=== PATIENT | female | born 1975 | race Caucasian/White ===

== ENCOUNTER 2017-06-12 10:46 | Emergency (ER) | payer OTHER ==
--- NOTE | 2017-06-12 11:02 | EDM.PDOC ---
ED HPI GENERAL MEDICAL PROBLEM - General Chief Complaint: Laceration Stated Complaint: CUT FINGER IN LT HAND Time Seen by Provider: 06/12/17 11:02 Source of Information: Reports: Patient History Limitations: Reports: No Limitations - History of Present Illness INITIAL COMMENTS - FREE TEXT/NARRATIVE: HISTORY AND PHYSICAL: History of present illness: Shouldn't is a 41-year-old female who presents to the emergency room with complaints of laceration to the left second digit. She was at work, works at [employer], and cut her distal finger with a bread knife. Patient had applied at her own dressing prior to arrival. Pressure was needed to control bleeding. Tetanus is up-to-date. Review of systems: As per history of present illness and below otherwise all systems reviewed and negative. Past medical history: As per history of present illness and as reviewed below otherwise noncontributory. Surgical history: As per history of present illness and as reviewed below otherwise noncontributory. Social history: No reported history of drug or alcohol abuse. Family history: As per history of present illness and as reviewed below otherwise noncontributory. Physical exam: Gen.: Well-developed and well-nourished 81-year-old female. Alert and oriented. Appears nontoxic and in no acute distress. HEENT: Atraumatic, normocephalic, pupils reactive, negative for conjunctival pallor or scleral icterus, mucous membranes moist, throat clear, neck supple, nontender, trachea midline. Lungs: Clear to auscultation, breath sounds equal bilaterally, chest nontender. Heart: S1S2, regular, negative for clicks, rubs, or JVD. Abdomen: Soft, nondistended, nontender. Negative for masses or hepatosplenomegaly. Negative for costovertebral tenderness. Pelvis: Stable nontender. Genitourinary: Deferred. Rectal: Deferred. Extremities: Moves all extremities per self with full range of motion without difficulty or deficits. Able to press against resistance and resist against pressure on the affected finger. No tendon involvement noted. Lotus refill less than 3 seconds. Neurovascular unremarkable. Skin: 2.5 cm laceration to the distal left second digit. No tendon involvement noted. Neuro: Awake, alert, oriented. Cranial nerves II through XII unremarkable. Cerebellum unremarkable. Motor and sensory unremarkable throughout. Exam nonfocal. Diagnostics: [] Therapeutics: 1% lidocaine was used for a digital block. 40 small needle to perform sutures. # 7 interrupted stitches were placed. Bacitracin bulky dressing applied. Impression: Finger laceration Plan: Please keep your lacerated finger clean and dry. Keep the dressing we placed on you for 24-48 hours. Monitor for signs of infection. Tylenol and Ibuprofen as needed for pain. Stitches out in 7-10 days Follow up with your PCP as needed. Return to the ED as needed and as directed. Definitive disposition and diagnosis as appropriate pending reevaluation and review of above. Duration: Minutes: Location: Reports: Upper Extremity, Left Left 2-Index finger Pain Score (Numeric/FACES): 4 - Related Data Allergies Allergy/AdvReac Type Severity Reaction Status Date / Time No Known Allergies Allergy Verified 06/12/17 11:33 Home Meds: Home Meds Aspirin [Ecotrin] 325 mg PO DAILY 06/12/17 [History] ED ROS GENERAL - Review of Systems Review Of Systems: ROS reveals no pertinent complaints other than HPI. ED EXAM, SKIN/RASH Exam: See Below (See dictation) ED SKIN PROCEDURES - Laceration/Wound Repair Left 2nd distal finger Lac/Wound length In cm: 2.5 Appearance: Subcutaneous Distal NVT: Neuro & Vascular Intact, No Tendon Injury Local Anesthesia - Lidocaine (Xylocaine): 1% Plain Local Anesthetic Volume: 4cc Skin Prep: Chlorhexidine (Hibiciens), Providone-Iodine (Betadine), Saline, Sterile Drape Exploration/Debridement/Repair: Wound Explored, No Foreign Material Found Closed with: Sutures Suture Size: 4-0 # of Sutures: 7 Suture Type: Nylon Course - Vital Signs Last Recorded V/S: Last Vital Signs Temp 98.7 F 06/12/17 11:15 Pulse 91 06/12/17 11:15 Resp 18 06/12/17 11:15 BP 159/92 H 06/12/17 11:15 Pulse Ox 96 06/12/17 11:15 - Orders/Labs/Meds Meds: Medications Discontinued Medications Generic Name Dose Route Start Last Admin Trade Name Freq PRN Reason Stop Dose Admin Bacitracin 1 dose 06/12/17 11:04 06/12/17 11:34 Bacitracin Oint 1 Gm TOP 06/12/17 11:05 1 dose ONETIME ONE Administration Lidocaine HCl 20 ml 06/12/17 11:04 12/21/17 11:04 Xylocaine 1% INJECT 06/12/17 11:05 10 ml ONETIME ONE Administration Departure - Departure Time of Disposition: 11:39 Disposition: Home, Self-Care 01 Clinical Impression: Laceration - Discharge Information Instructions: Laceration Care, Adult, [id number] Referrals: PCP,None [Primary Care Provider] - Forms: ED Department Discharge Additional Instructions: My general discharge The following information is given to patients seen in the emergency department who are being discharged to home. This information is to outline your options for follow-up care. We provide all patients seen in our emergency department with a follow-up referral. The need for follow-up, as well as the timing and circumstances, are variable depending upon the specifics of your emergency department visit. If you don't have a primary care physician on staff, we will provide you with a referral. We always advise you to contact your personal physician following an emergency department visit to inform them of the circumstance of the visit and for follow-up with them and/or the need for any referrals to a consulting specialist. The emergency department will also refer you to a specialist when appropriate. This referral assures that you have the opportunity for follow-up care with a specialist. All of these measure are taken in an effort to provide you with optimal care, which includes your follow-up. Under all circumstances we always encourage you to contact your private physician who remains a resource for coordinating your care. When calling for follow-up care, please make the office aware that this follow-up is from your recent emergency room visit. If for any reason you are refused follow-up, please contact the [facility] Emergency Department at and asked to speak to the emergency department charge nurse. [facility] [address] [place] [id number] Please keep your lacerated finger clean and dry. Keep the dressing we placed on you for 24-48 hours. Monitor for signs of infection. Tylenol and Ibuprofen as needed for pain. Stitches out in 7-10 days Follow up with your PCP as needed. Return to the ED as needed and as directed.
[2017-06-12] MEDS ORDERED: Lidocaine 1% 20 ML MDV INJECT ONE (11:04)
[2017-06-12] MEDS ORDERED: Bacitracin Oint 1 GM U/D Packet TOP ONE (11:04)
== END 2017-06-12 11:56 | disposition home or self-care (01) ==
LOC: MW.ED 10:46
DX: S61.211A Laceration without foreign body of left index finger without damage to nail, initial encounter (principal); Z79.82 Long term (current) use of aspirin; W26.0XXA Contact with knife, initial encounter
CPT/HCPCS: 12001; 99282; 99283

== ENCOUNTER 2017-07-22 18:58 | Emergency (ER) | payer BC, OTHER ==
--- NOTE | 2017-07-22 19:23 | EDM.PDOC ---
ED HPI GENERAL MEDICAL PROBLEM - General Chief Complaint: Respiratory Problem Stated Complaint: TROUBLE BREATHING Time Seen by Provider: 07/22/17 19:22 Source of Information: Reports: Patient History Limitations: Reports: No Limitations - History of Present Illness INITIAL COMMENTS - FREE TEXT/NARRATIVE: HISTORY AND PHYSICAL: []41-year-old female presenting with right-sided chest pain and cough History of Present Illness: []Difficulty breathing has been for the last 3 days Denies asthma Review of Systems: As per history of present illness and below otherwise all systems reviewed and negative. Past medical history: As per history of present illness and as reviewed below otherwise noncontributory. Surgical history: As per history of present illness and as reviewed below otherwise noncontributory. Social history: No reported history of drug or alcohol abuse. Family history: As per history of present illness and as reviewed below otherwise noncontributory. Physical exam: Alert and oriented female answering questions in 3-4 words at a time. Shortness of breath with speaking. HEENT: Atraumatic, normocehpalic, pupils reactive, negative for conjunctival pallor or scleral icterus, mucous membranes moist, throat clear, neck supple, nontender, trachea midline. Lungs: Wheezing on auscultation, breath sounds equal bilaterally, chest non tender. Heart: S1S2, regular, negative for clicks, rubs, or JVD. Abdomen: Soft, nondistended, nontender. Negative for masses or hepatossplenmegaly. Negative for costovertebral tenderness. Pelvis: Stable nontender. Genitourinary: Deferred. Rectal: Deferred Extremities: Atraumatic, negative for cords or calf pain. Neurovascular unremarkable. Neuro: Awake, alert, oriented. Cranial nerves II through XII unremarkable. Cerebellum unremarkable. Motor and sensory unremarkable throughout. Exam nonfocal. Have discussed the results of testing with patient and her , positive for flu I discussed the hyperglycemia and patient states that she was.borderline diabetic and quit taking her medication last October. She had been on metformin 500 mg twice daily Diagnostics: [CBC CMP influenza chest x-ray] Therapeutics: [] Impression: [Influenza B] Diabetes mellitus type 2 Plan: [Discharged to home Rest Fluids every 20 minutes to not get dehydrated as discussed Suom-[id number] medications Tylenol alternating with ibuprofen as discussed Tamiflu Metformin ] Definitive disposition and diagnosis as appropriate pending reevaluation and review of above. Onset: Gradual Duration: Day(s): (3) Location: Reports: Generalized chest Pain Score (Numeric/FACES): 10 - Related Data Allergies Allergy/AdvReac Type Severity Reaction Status Date / Time No Known Allergies Allergy Verified 06/12/17 11:33 Home Meds: Home Meds Aspirin [Ecotrin] 325 mg PO DAILY 06/12/17 [History] Oseltamivir [Tamiflu] 75 mg PO BID #10 cap 07/22/17 [Rx] metFORMIN [Glucophage] 500 mg PO BIDMEALS #10 tab 07/22/17 [Rx] Past Medical History - Past Health History Medical/Surgical History: Denies Medical/Surgical History Social & Family History - Family History Family Medical History: Noncontributory - Tobacco Use Smoking Status *Q: Current Every Day Smoker Years of Tobacco use: 10 Packs/Tins Daily: 0.5 Used Tobacco, but Quit: No Second Hand Smoke Exposure: Yes - Caffeine Use Caffeine Use: Reports: Coffee, Soda - Alcohol Use Days Per Week of Alcohol Use: 7 Number of Drinks Per Day: 2 Total Drinks Per Week: 14 - Recreational Drug Use Recreational Drug Use: No ED ROS GENERAL - Review of Systems Review Of Systems: ROS reveals no pertinent complaints other than HPI. ED EXAM, GENERAL - Physical Exam Exam: See Below (See dictation) Course - Vital Signs Last Recorded V/S: Last Vital Signs Temp 36.6 C 07/22/17 18:58 Pulse 97 07/22/17 18:58 Resp 26 H 07/22/17 18:58 BP 136/67 07/22/17 18:58 Pulse Ox 94 L 07/22/17 18:58 - Orders/Labs/Meds Orders: Active Orders 24 hr Category Date Time Status EKG 12 Lead [EKG Documentation Completion] [RC] STAT Care 07/22/17 19:16 Active RT Aerosol Therapy [RC] ASDIRECTED Care 07/22/17 19:31 Active Chest 2V [CR] Stat Exams 07/22/17 19:27 Taken CULTURE URINE [RM] Stat Lab 07/22/17 20:30 Received Sodium Chloride 0.9% [Saline Flush] Med 07/22/17 19:27 Active 10 ml FLUSH ASDIRECTED PRN Sodium Chloride 0.9% [Saline Flush] Med 07/22/17 19:27 Active 2.5 ml FLUSH ASDIRECTED PRN Saline Lock Insert [OM.PC] Stat Oth 07/22/17 19:27 Ordered Medication Orders Sodium Chloride (Saline Flush) 10 ml FLUSH ASDIRECTED PRN PRN Reason: Keep Vein Open Sodium Chloride (Saline Flush) 2.5 ml FLUSH ASDIRECTED PRN PRN Reason: Keep Vein Open Labs: Laboratory Tests 07/22/17 07/22/17 07/22/17 Range/Units 20:10 20:10 20:30 WBC 7.00 (4.0-11.0) K/uL RBC 4.85 (4.30-5.90) M/uL Hgb 15.2 (12.0-16.0) g/dL Hct 43.7 (36.0-46.0) % MCV 90.1 (80.0-98.0) fL MCH 31.3 (27.0-32.0) pg MCHC 34.8 (31.0-37.0) g/dL RDW Std Deviation 44.3 (28.0-62.0) fl RDW Coeff of Verito 13 (11.0-15.0) % Plt Count 140 L (150-400) K/uL MPV 10.60 (7.40-12.00) fL Neut % (Auto) 66.5 (48.0-80.0) % Lymph % (Auto) 20.7 (16.0-40.0) % Mason % (Auto) 10.6 (0.0-15.0) % Eos % (Auto) 1.9 (0.0-7.0) % Baso % (Auto) 0.3 (0.0-1.5) % Neut # (Auto) 4.7 (1.4-5.7) K/uL Lymph # (Auto) 1.5 (0.6-2.4) K/uL Mason # (Auto) 0.7 (0.0-0.8) K/uL Eos # (Auto) 0.1 (0.0-0.7) K/uL Baso # (Auto) 0.0 (0.0-0.1) K/uL Nucleated RBC % 0.0 /100WBC Nucleated RBCs # 0 K/uL Sodium 130 L (136-146) mmol/L Potassium 4.7 (3.5-5.1) mmol/L Chloride 93 L (98-110) mmol/L Carbon Dioxide 22 (21-31) mmol/L BUN 7 (6.0-23.0) mg/dL Creatinine 0.9 (0.6-1.5) mg/dL Est Cr Clr Drug Dosing TNP Estimated GFR (MDRD) > 60.0 ml/min Glucose 467 H (60-110) mg/dL Calcium 9.3 (8.8-10.8) mg/dL Total Bilirubin 0.4 (0.1-1.5) mg/dL AST 116 H (5-40) IU/L ALT 81 H (8-54) IU/L Alkaline Phosphatase 113 (40-150) Total Protein 7.6 (6.0-8.0) g/dL Albumin 3.7 (3.5-5.0) g/dL Globulin 3.9 H (2.0-3.5) g/dL Albumin/Globulin Ratio 1.0 L (1.3-2.8) Urine Color YELLOW Urine Appearance CLEAR Urine pH 6.0 (5.0-8.0) Ur Specific [place] 1.010 (1.001-1.035) Urine Protein NEGATIVE (NEGATIVE) mg/dL Urine Glucose (UA) >=1000 (NEGATIVE) mg/dL Urine Ketones TRACE H (NEGATIVE) mg/dL Urine Occult Blood TRACE-INTACT (NEGATIVE) Urine Nitrite NEGATIVE (NEGATIVE) Urine Bilirubin NEGATIVE (NEGATIVE) Urine Urobilinogen 0.2 (<2.0) EU/dL Ur Leukocyte Esterase NEGATIVE (NEGATIVE) Urine RBC 0-2 (0-2/HPF) Urine WBC 0-1 (0-5/HPF) Ur Epithelial Cells OCCASIONAL (NONE-FEW) Urine Bacteria RARE (NEGATIVE) Urine Yeast OCCASIONAL Meds: Medications Generic Name Dose Route Start Last Admin Trade Name Freq PRN Reason Stop Dose Admin Sodium Chloride 10 ml 07/22/17 19:27 Saline Flush FLUSH ASDIRECTED PRN Keep Vein Open Sodium Chloride 2.5 ml 07/22/17 19:27 Saline Flush FLUSH ASDIRECTED PRN Keep Vein Open Discontinued Medications Generic Name Dose Route Start Last Admin Trade Name Freq PRN Reason Stop Dose Admin Albuterol/Ipratropium 3 ml 07/22/17 19:31 07/22/17 19:43 Duoneb 3.0-0.5 Mg/3 Ml NEB 07/22/17 19:32 3 ml ONETIME ONE Administration Insulin Human Regular 5 unit 07/22/17 21:06 Novolin R IVPUSH 07/22/17 21:07 ONETIME ONE Protocol Departure - Departure Time of Disposition: 21:16 Disposition: Home, Self-Care 01 Condition: Good Clinical Impression: Influenza - Discharge Information Prescriptions: metFORMIN [Glucophage] 500 mg PO BIDMEALS #10 tab Oseltamivir [Tamiflu] 75 mg PO BID #10 cap Instructions: Shortness of Breath, [id number] Referrals: PCP,None [Primary Care Provider] - Forms: ED Department Discharge Additional Instructions: The following information is given to patients seen in the emergency department who are being discharged to home. This information is to outline your options for follow-up care. We provide all patients seen in our emergency department with a follow-up referral. The need for follow-up, as well as the timing and circumstances, are variable depending upon the specifics of your emergency department visit. If you don't have a primary care physician on staff, we will provide you with a referral. We always advise you to contact your personal physician following an emergency department visit to inform them of the circumstance of the visit and for follow-up with them and/or the need for any referrals to a consulting specialist. The emergency department will also refer you to a specialist when appropriate. This referral assures that you have the opportunity for followup care with a specialist. All of these measure are taken in an effort to provide you with optimal care, which includes your followup. Under all circumstances we always encourage you to contact your private physician who remains a resource for coordinating your care. When calling for followup care, please make the office aware that this follow-up is from your recent emergency room visit. If for any reason you are refused follow-up, please contact the [facility] emergency department at and asked to speak to the emergency department charge nurse. Your testing has revealed that you have the flu SHe had diabetes mellitus type 2 Medications have been sent to your pharmacy The need to follow-up in the next 2 days with a primary care provider and ship mate [facility] [address] [place] [id number] Anupam [id number] - My Orders Last 24 Hours: My Active Orders 07/22/17 19:27 Chest 2V [CR] Stat Sodium Chloride 0.9% [Saline Flush] 10 ml FLUSH ASDIRECTED PRN Sodium Chloride 0.9% [Saline Flush] 2.5 ml FLUSH ASDIRECTED PRN Saline Lock Insert [OM.PC] Stat 07/22/17 19:31 RT Aerosol Therapy [RC] ASDIRECTED 07/22/17 20:30 CULTURE URINE [RM] Stat - Assessment/Plan Last 24 Hours: My Active Orders 07/22/17 19:27 Chest 2V [CR] Stat Sodium Chloride 0.9% [Saline Flush] 10 ml FLUSH ASDIRECTED PRN Sodium Chloride 0.9% [Saline Flush] 2.5 ml FLUSH ASDIRECTED PRN Saline Lock Insert [OM.PC] Stat 07/22/17 19:31 RT Aerosol Therapy [RC] ASDIRECTED 07/22/17 20:30 CULTURE URINE [RM] Stat
[2017-07-22] MEDS ORDERED: Sodium Chloride 0.9% 10 ML Syringe FLUSH PRN (19:27)
[2017-07-22] MEDS ORDERED: Sodium Chloride 0.9% 2.5 ML Syringe FLUSH PRN (19:27)
[2017-07-22] MEDS ORDERED: Albuterol/Ipratropium 3.0-0.5 MG/3 ML Neb Soln NEB ONE (19:31)
[2017-07-22 20:47] LABS: CHLORIDE,CL 93 mmol/L (98-110); SODIUM,NA 130 mmol/L (136-146)
[2017-07-22] MEDS ORDERED: Insulin Regular, Human 100 Units/ML 10 ML Vial IVPUSH ONE (21:06)
--- NOTE | 2017-07-23 09:06 | CR ---
EXAM DATE: 07/22/17 PATIENT'S AGE: 41 Patient: SHELLI NEGRETE Facility: [place], [place] Site . Site : [id number] Study: XRay Chest [id number] 8:29:27 PM Ordering Physician: Doctor Hayes Final Report: INDICATION: sob x3 days TECHNIQUE: Chest 2 views. COMPARISON: None. FINDINGS: Cardiovascular and mediastinum: Heart size and vasculature are normal in caliber and appearance. Mediastinum is within normal limits. Lungs and pleural spaces: Lungs are clear. No sign of infiltrate or mass. No sign of pleural effusion. No pneumothorax. Bones and soft tissues: No significant findings. IMPRESSION: Unremarkable chest. Dictated by: Osmin Hill MD @ 07/22/2017 20:37:27 (Electronic Signature) Report Signed by Proxy. AMANDA
== END 2017-07-22 22:00 | disposition home or self-care (01) ==
LOC: MW.ED 18:58
DX: J10.2 Influenza due to other identified influenza virus with gastrointestinal manifestations (principal); E11.9 Type 2 diabetes mellitus without complications; F17.210 Nicotine dependence, cigarettes, uncomplicated; Z79.82 Long term (current) use of aspirin; Z79.84 Long term (current) use of oral hypoglycemic drugs
CPT/HCPCS: 36415; 71046; 71046-26; 80053; 81001; 82962; 85025; 87086; 87804; 93005; 94640; 96374; 99283; 99285-25; J1815-GY

== ENCOUNTER 2017-12-14 10:59 | Emergency (ER) | payer SELFPAY ==
--- NOTE | 2017-12-14 11:10 | EDM.PDOC ---
ED HPI GENERAL MEDICAL PROBLEM - General Stated Complaint: LT SHOULDER HURTS Time Seen by Provider: 12/14/17 11:09 Source of Information: Reports: Patient History Limitations: Reports: No Limitations - History of Present Illness INITIAL COMMENTS - FREE TEXT/NARRATIVE: HISTORY AND PHYSICAL: []42-year-old female presenting with left shoulder pain History of Present Illness: []Pain is an present last 3 weeks worsening in its symptomology. Patient has difficulty with raising her arm She has tried using heat and ice on her shoulder, used some Aspercreme or similar product and that seemed to help the last 2 weeks but now nothing is helping. 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 Patient states that she does not go to doctors frequently and has not established at a clinic since moving to [place]. Review of Systems: As per history of present illness and below otherwise all systems reviewed and negative. Past medical history: As per history of present illness and as reviewed below otherwise noncontributory. Surgical history: As per history of present illness and as reviewed below otherwise noncontributory. Social history: No reported history of drug or alcohol abuse. Family history: As per history of present illness and as reviewed below otherwise noncontributory. Physical exam: Very pleasant alert female, answering questions appropriately, in full sentences without any shortness of breath. She is nontoxic in appearance. HEENT: Atraumatic, normocehpalic, pupils reactive, negative for conjunctival pallor or scleral icterus, mucous membranes moist, throat clear, neck supple, nontender, trachea midline. Lungs: Clear to auscultation, breath sounds equal bilaterally, chest non tender. Heart: S1S2, regular, negative for clicks, rubs, or JVD. Abdomen: Soft, nondistended, nontender. Negative for masses or hepatossplenmegaly. Negative for costovertebral tenderness. Pelvis: Stable nontender. Genitourinary: Deferred. Rectal: Deferred Extremities: Atraumatic, negative for cords or calf pain. Neurovascular unremarkable. Neuro: Awake, alert, oriented. Cranial nerves II through XII unremarkable. Cerebellum unremarkable. Motor and sensory unremarkable throughout. Exam nonfocal. Discussed tendinitis with this patient and exercises that will help keep the movement into her shoulder. Patient has performed the exercises as described and demonstrated his difficulty with southern ute movements bending over with her shoulder Diagnostics: [] Therapeutics: []Toradol IM Sling Impression: []Tendinitis left shoulder Plan: []Discharge Prednisone Diclofenac Definitive disposition and diagnosis as appropriate pending reevaluation and review of above. Onset: Gradual Duration: Week(s):, Getting Worse Location: Reports: Upper Extremity, Left Quality: Reports: Ache, Throbbing Severity: Moderate Improves with: Reports: None Worsens with: Reports: None left shoulder Pain Score (Numeric/FACES): 8 - Related Data Allergies Allergy/AdvReac Type Severity Reaction Status Date / Time No Known Allergies Allergy Verified 12/14/17 11:09 Home Meds: Home Meds Diclofenac Sodium [Voltaren] 75 mg PO BIDMEALS #20 tab.cr 12/14/17 [Rx] predniSONE [Prednisone] 20 mg PO Q8HR #24 tablet 12/14/17 [Rx] Past Medical History - Past Health History Medical/Surgical History: Denies Medical/Surgical History Endocrine/Metabolic History: Reports: Diabetes, Type II Social & Family History - Family History Family Medical History: Noncontributory - Caffeine Use Caffeine Use: Reports: Coffee, Soda ED ROS GENERAL - Review of Systems Review Of Systems: ROS reveals no pertinent complaints other than HPI. ED EXAM, GENERAL - Physical Exam Exam: See Below (see dictation) Course - Vital Signs Last Recorded V/S: Last Vital Signs Temp 36.0 C 12/14/17 11:09 Pulse 96 12/14/17 11:09 Resp 16 12/14/17 11:09 BP 143/77 H 12/14/17 11:09 Pulse Ox 98 12/14/17 11:09 - Orders/Labs/Meds Orders: Active Orders 24 hr Category Date Time Status Splinting [RC] ASDIRECTED Care 12/14/17 11:22 Ordered Meds: Medications Discontinued Medications Generic Name Dose Route Start Last Admin Trade Name Freq PRN Reason Stop Dose Admin Ketorolac Tromethamine 60 mg 12/14/17 11:22 Toradol IM 12/14/17 11:23 ONETIME ONE Departure - Departure Time of Disposition: 11:31 Disposition: Home, Self-Care 01 Condition: Good Clinical Impression: Biceps tendinitis of left shoulder - Discharge Information Prescriptions: predniSONE [Prednisone] 20 mg PO Q8HR #24 tablet Diclofenac Sodium [Voltaren] 75 mg PO BIDMEALS #20 tab.cr Instructions: Biceps Tendon Tendinitis (Proximal) and Tenosynovitis Rehab- Sports[facility], Shoulder Exercises-SportsMed, How to Use a Sling, [id number] Referrals: PCP,None [Primary Care Provider] - Additional Instructions: The following information is given to patients seen in the emergency department who are being discharged to home. This information is to outline your options for follow-up care. We provide all patients seen in our emergency department with a follow-up referral. The need for follow-up, as well as the timing and circumstances, are variable depending upon the specifics of your emergency department visit. If you don't have a primary care physician on staff, we will provide you with a referral. We always advise you to contact your personal physician following an emergency department visit to inform them of the circumstance of the visit and for follow-up with them and/or the need for any referrals to a consulting specialist. The emergency department will also refer you to a specialist when appropriate. This referral assures that you have the opportunity for followup care with a specialist. All of these measure are taken in an effort to provide you with optimal care, which includes your followup. Under all circumstances we always encourage you to contact your private physician who remains a resource for coordinating your care. When calling for followup care, please make the office aware that this follow-up is from your recent emergency room visit. If for any reason you are refused follow-up, please contact the [facility] emergency department at and asked to speak to the emergency department charge nurse. Follow-up with a primary care care provider Follow-up with one of these clinics [facility] [address] [place] [id number] [place] [address] Orthopedic follow-up may be obtained at [facility] [address] [place] [address], [address] [place] [address] Fax: [phone] Physical therapy may be obtained at [facility] or other local facilities Note has been having been given to be off work for the next 48 hours - My Orders Last 24 Hours: My Active Orders 12/14/17 11:22 Splinting [RC] ASDIRECTED - Assessment/Plan Last 24 Hours: My Active Orders 12/14/17 11:22 Splinting [RC] ASDIRECTED
[2017-12-14] MEDS ORDERED: Ketorolac 60 MG/2 ML SDV IM ONE (11:22)
== END 2017-12-14 11:50 | disposition home or self-care (01) ==
LOC: MW.ED 10:59
DX: M75.22 Bicipital tendinitis, left shoulder (principal); E11.9 Type 2 diabetes mellitus without complications; Z79.899 Other long term (current) drug therapy
CPT/HCPCS: 96372; 99283; J1885